=== PATIENT | male | born 1955 | race Caucasian/White ===

== ENCOUNTER → 2016-10-18 | Outpatient (CLI) | payer BC ==
[~2016-10-18] MED LIST: CYM/30 PO; IBUP-103 PO; LEVOTHYROXINE PO; LOSA50TA54 PO; SOLI10TA2 PO; SUMA50TA15 PO
--- NOTE | 2016-10-18 15:21 | DIAGNOSTIC IMAGING REPORT ---
KUB CLINICAL HISTORY: N20.0 [id number] HEMATURIA. LEFT-SIDED ABDOMINAL PAIN COMPARISON STUDY: 04/16/2016 FINDINGS: There are 2 left renal calculi measuring 8 mm and 7 mm respectively. 2 calcific densities project over the left hemisacrum were present on prior studies and likely represent either phleboliths or bone islands. There is a stable right pelvic basin calcification. There are postsurgical changes within the lumbar spine. There is no pathologic bowel dilatation. IMPRESSION: Left-sided nephrolithiasis. Electronically signed by: Kennedy Womack M.D. 10/18/2016 3:19 PM Dictated Date/Time: 10/18/2016 3:18 PM
== END | disposition home or self-care (01) ==
LOC: C.RAD 15:03
PROVIDERS: ATTEND Urology
DX: N20.0 Calculus of kidney (principal)

== ENCOUNTER → 2016-10-19 | Outpatient (CLI) | payer BC ==
[2016-10-19 12:23] LABS: BASO % 0.7 %; BASO ABS # 0.04 K/uL (0-0.2); COMPLETE YES; EOS % 2.5 %; HEMATOCRIT 46.8 % (42-52); IG% 0.2 %; LYMPH % 34.5 %; LYMPH ABS # 2.06 K/uL (1.2-3.4); MEAN CELL VOLUME 87.3 fL (80-100); MEAN CORPUSCULAR HEMOGLOBIN 30.2 pg (25-34); MEAN CORPUSCULAR HGB CONC 34.6 g/dl (32-36); NEUT % 55.1 %; PLATELET COUNT 227 K/uL (130-400); RED BLOOD COUNT 5.36 M/uL (4.7-6.1); WHITE BLOOD COUNT 5.97 K/uL (4.8-10.8)
--- NOTE | 2016-10-19 12:38 | DIAGNOSTIC IMAGING REPORT ---
CHEST 2 VIEWS ROUTINE HISTORY: Pre-op. N20.0 Nephrolithiasis COMPARISON: None. FINDINGS: The lungs are clear. Cardiac silhouette is normal in size. No pleural effusions. No pneumothorax. Cervical spinal fusion hardware. IMPRESSION: No acute process. Electronically signed by: Oj Chand M.D. 10/19/2016 12:36 PM Dictated Date/Time: 10/19/2016 12:35 PM
[2016-10-19 12:53] LABS: BLOOD UREA NITROGEN 24 mg/dl (7-18); BUN/CREATININE RATIO 18.6 (10-20); CALCIUM 9.2 mg/dl (8.5-10.1); CARBON DIOXIDE 26 mmol/L (21-32); CHLORIDE 108 mmol/L (98-107); GLUCOSE 103 mg/dl (70-99); POTASSIUM 4.1 mmol/L (3.5-5.1); SODIUM 142 mmol/L (136-145)
== END | disposition home or self-care (01) ==
LOC: C.RAD 11:41
PROVIDERS: ATTEND Urology
DX: N20.0 Calculus of kidney (principal)

== ENCOUNTER → 2016-10-26 | Day surgery (SDC) | payer BC ==
[2016-10-23 08:33] VITALS: Ht 177.8 cm; Wt 122.7 kg
[~2016-10-26] VITALS: Ht 177.8 cm; Wt 122.7 kg
[~2016-10-26] MED LIST changes: +ATROPINE SULFATE 0.1 MG/ML 5ML SYR IV PRN; +CIPROFLOXACIN 400MG / D5W IV SCH; +DEXAMETHASONE SOD INJ 4 MG/ML VIAL IV PRN; +DEXAMETHASONE SOD INJ 4 MG/ML VIAL ONE; +EpHEDrine SULFATE INJ 50 MG/ML AMP IV PRN; +FENTANYL CITRATE INJ 50 MCG/1 ML 2 ML VIAL IV PRN; +FENTANYL CITRATE INJ 50 MCG/1 ML 2 ML VIAL ONE; +KETOROLAC TROMETHAMINE 30 MG/ML VIAL IV. PRN; +LABETALOL HCL IV 5 MG/ML 20ML IV PRN; +LACTATED RINGER'S 1000ML 1,000 ML IV SCH; +LIDOCAINE HCL 2% 2 ML VIAL (20MG/ML) ONE; +METOCLOPRAMIDE HCL INJ 5 MG/ML 2 ML VIAL IV PRN; +MoRPHine SULFATE 10 MG/ML CARP/VIAL IV PRN; +ONDANSETRON INJ 2 MG/ML 2 ML VIAL IV PRN; +ONDANSETRON INJ 2 MG/ML 2 ML VIAL ONE; +OXYCODONE/ACETAMINOPHEN 5-325 TAB PO PRN; +PHENYLEPHRINE 100MCG/ML 5ML SYR IV PRN; +PROPOFOL IV EMULSION 10 MG/ML 20 ML VIAL IV ONE; +SODIUM CHLORIDE 0.9% 1000ML 1,000 ML IV SCH
--- NOTE | 2016-10-26 10:50 | DIAGNOSTIC IMAGING REPORT ---
KUB CLINICAL HISTORY: Nephrolithiasis. FINDINGS: 2 AP supine abdominal radiograph are compared to study dated 10/18/2016. There is a nonobstructed abdominal bowel gas pattern. Again seen are 2 nonobstructing calculi projecting over the lower pole of the left kidney. These measure 9 mm and 8mm. No calcifications are seen projecting over the right kidney or along the course of the ureters. Pelvic phleboliths are similar to previous. The skeletal structures are osteopenic. There is a lumbosacral spondylosis with evidence of previous lumbar spinal surgery. The bony pelvis appears intact. IMPRESSION: Nonobstructing left renal calculi are similar in appearance to the 10/18/2016 examination. Electronically signed by: Manas Rust M.D. 10/26/2016 10:49 AM Dictated Date/Time: 10/26/2016 10:47 AM
--- NOTE | 2016-10-26 14:11 | History & Physical Bridge Note ---
H&P Re-Evaluation Bridge Note: I have examined the patient, reviewed the History & Physical and in the interval since the performance of the History & Physical I have noted the following changes of clinical significance: No changes noted
--- NOTE | 2016-10-26 15:03 | Discharge Instructions-SurgCtr ---
Discharge Instructions Visit Reason for Visit: Stones Discharge Discharge Diagnosis / Problem: treat stones Discharge Goals Goal(s): Decrease discomfort, Improve function, Increase independence, Improve disease control Medications Stopped Medications Name(s): Advil last dose a week ago. Activity Recommendations Activity Limitations: resume your previous activity Lifting Limitations: none Exercise/Sports Limitations: none May Resume Sexual Activity: when tolerated Shower/Bathe: no limitations Driving or Machine Use: no limitations Anesthesia . Post Anesthesia Instructions: If you have had General Anesthesia or IV Sedation: * Do not drive today. * Resume driving when surgeon permits. * Do not make important decisions or sign legal documents today. * Call surgeon for: 1. Temperature elevations greater than 101 degrees F. 2. Uncontrollable pain. 3. Excessive bleeding. 4. Persistent nausea and vomiting. 5. Medication intolerance (nausea, vomiting or rash). * For nausea and vomiting use only clear liquids such as: tea, soda, bouillon until nausea subsides, then gradually increase diet as tolerated. * If you have any concerns or questions, call your surgeon's office. If physician is unavailable and it is an emergency, call 911 or go to the nearest emergency room. . Diet Recommendations Home Diet: no limitations Procedures Procedures Performed: Left Extracorporeal Shock Wave Lithotripsy Pending Studies Studies pending at discharge: no Medical Emergencies . Who to Call and When: Medical Emergencies: If at any time you feel your situation is an emergency, please call 911 immediately. . Non-Emergent Contact Non-Emergency issues call your: Urologist Call Non-Emergent contact if: you have a fever, temperature is above 101.5, your pain is not controlled, your pain is worsening . . "Provider Documentation" section prepared by Venkata Bueno.
--- NOTE | 2016-10-26 15:04 | [facility] Post Operative Brief Note ---
Immediate Operative Summary Operative Date Oct 26, 2016. Pre-Operative Diagnosis Left Kidney Stones Post-Operative Diagnosis Same Procedure(s) Performed Left Extracorporeal Shock Wave Lithotripsy Surgeon Dr. Lauri Black [place] Surgeon(s) None Estimated Blood Loss None Findings two left renal stones - both treated, both appeared to fragment nicely Specimens None Drains none Anesthesia gen Complication(s) None Disposition Recovery Room / PACU (stable)
[2016-10-26 15:31] VITALS: TEMP 36.5
[2016-10-26 15:55] VITALS: BP 134/88; PULSE 78; O2SAT 95
--- NOTE | 2016-10-26 15:59 | Anesthesia Progress Nt - [facility] ---
Anesthesia Post Op Note Date & Time Oct 26, 2016 at 16:00 Vital Signs Pain Intensity: 0 Vital Signs Past 12 Hours Date Time Temp Pulse Resp B/P Pulse Ox O2 Delivery O2 Flow Rate FiO2 10/26/16 15:55 78 16 134/88 95 Room Air 10/26/16 15:31 36.5 78 16 154/98 96 Room Air 10/26/16 15:28 36.8 10/26/16 15:27 79 16 98 10/26/16 15:27 80 16 10/26/16 15:24 Room Air 10/26/16 15:23 145/95 10/26/16 15:22 77 10 10/26/16 15:22 77 10 100 10/26/16 15:18 135/95 10/26/16 15:17 75 18 99 10/26/16 15:17 76 18 10/26/16 15:13 151/101 10/26/16 15:12 80 9 10/26/16 15:12 80 9 99 10/26/16 15:08 36.4 84 16 170/104 97 Diffusion Mask 5 10/26/16 11:56 36.8 86 16 142/100 97 Room Air Notes Mental Status: alert / awake / arousable, participated in evaluation Pt Amnestic to Procedure: Yes Nausea / Vomiting: adequately controlled Pain: adequately controlled Airway Patency, RR, SpO2: stable & adequate BP & HR: stable & adequate Hydration State: stable & adequate Anesthetic Complications: no major complications apparent
--- NOTE | 2016-10-26 15:59 | OPERATIVE REPORT ---
DATE OF OPERATION: 10/26/2016 PREOPERATIVE DIAGNOSIS: Left renal calculi. POSTOPERATIVE DIAGNOSIS: Left renal calculi. PROCEDURE PERFORMED: Left extracorporeal shockwave lithotripsy. SURGEON: Dr. Rafa Black. ANESTHESIA: General. ESTIMATED BLOOD LOSS: 0. URINE OUTPUT: Not recorded. SPECIMENS: None. DRAINS: None. DESCRIPTION OF THE PROCEDURE: Raji Aguillon was identified in the preoperative holding area and consents were reviewed and completed and the patient was transported to the operating suite. Following induction of general anesthesia and administration of ciprofloxacin stones were localized under fluoroscopy. We began by treating the stone at the UPJ, administered approximately 1200 shocks to the stone before it looked like it had been completely pulverized. We then identified a second stone which was approximately 3 cm away. We retargeted the stone and delivered an additional 1300 shocks. This appeared to fragment extremely well as well. At the conclusion of the case, a total of 2500 shocks had been delivered. The patient was in stable condition. He was extubated and taken to the PACU in stable condition. Additionally information can be found on the [facility] information sheet. I attest to the content of the Intraoperative Record and any orders documented therein. Any exceptio ns are noted below.
== END | disposition home or self-care (01) ==
LOC: X.SURG 10:25
PROVIDERS: ATTEND Urology
DX: N20.0 Calculus of kidney (principal); R35.1 Nocturia; R35.0 Frequency of micturition; N52.9 Male erectile dysfunction, unspecified; R39.15 Urgency of urination

== ENCOUNTER → 2016-11-05 | Outpatient (CLI) | payer BC ==
[~2016-11-05] MED LIST changes: -ATROPINE SULFATE 0.1 MG/ML 5ML SYR IV PRN; -CIPROFLOXACIN 400MG / D5W IV SCH; -DEXAMETHASONE SOD INJ 4 MG/ML VIAL IV PRN; -DEXAMETHASONE SOD INJ 4 MG/ML VIAL ONE; -EpHEDrine SULFATE INJ 50 MG/ML AMP IV PRN; -FENTANYL CITRATE INJ 50 MCG/1 ML 2 ML VIAL IV PRN; -FENTANYL CITRATE INJ 50 MCG/1 ML 2 ML VIAL ONE; -KETOROLAC TROMETHAMINE 30 MG/ML VIAL IV. PRN; -LABETALOL HCL IV 5 MG/ML 20ML IV PRN; -LACTATED RINGER'S 1000ML 1,000 ML IV SCH; -LIDOCAINE HCL 2% 2 ML VIAL (20MG/ML) ONE; -METOCLOPRAMIDE HCL INJ 5 MG/ML 2 ML VIAL IV PRN; -MoRPHine SULFATE 10 MG/ML CARP/VIAL IV PRN; -ONDANSETRON INJ 2 MG/ML 2 ML VIAL IV PRN; -ONDANSETRON INJ 2 MG/ML 2 ML VIAL ONE; -OXYCODONE/ACETAMINOPHEN 5-325 TAB PO PRN; -PHENYLEPHRINE 100MCG/ML 5ML SYR IV PRN; -PROPOFOL IV EMULSION 10 MG/ML 20 ML VIAL IV ONE; -SODIUM CHLORIDE 0.9% 1000ML 1,000 ML IV SCH
--- NOTE | 2016-11-05 08:15 | DIAGNOSTIC IMAGING REPORT ---
KUB CLINICAL HISTORY: Nephrolithiasis. Recent lithotripsy. FINDINGS: 2 AP supine abdominal radiograph are compared to study dated 10/26/2016. There is a nonobstructed abdominal bowel gas pattern noting moderate colonic fecal retention. The renal calculi seen projecting over the left lower pole on 10/26/2016 have been fragmented. Only small fragments are identified on today's examination. No calcifications are seen projecting over the right kidney or along the course of the ureters. Pelvic phleboliths are similar to previous. The skeletal structures are osteopenic. There is a lumbosacral spondylosis with evidence of previous lumbar spinal surgery. The bony pelvis appears intact. IMPRESSION: There has been fragmentation of the left lower pole renal calculi seen on 10/26/2016. Only small fragments remain. See above. Electronically signed by: Manas Rust M.D. 11/05/2016 8:13 AM Dictated Date/Time: 11/05/2016 8:11 AM
== END | disposition home or self-care (01) ==
LOC: C.RAD 07:43
PROVIDERS: ATTEND Urology
DX: N20.0 Calculus of kidney (principal)

== ENCOUNTER → 2016-11-05 | Outpatient (CLI) | payer BC | END | disposition home or self-care (01) | LOC: C.LABSPEC 17:06 | PROVIDERS: ATTEND Urology | DX: N20.0 Calculus of kidney (principal) ==